=== PATIENT | male | born 1950 | race Caucasian/White ===

== ENCOUNTER 2018-11-30 15:00 | Outpatient (RCR) ==
--- NOTE | 2018-11-17 15:52 | RS.OPPTEV2 ---
Date of Note: 11/17/18 Visit #: 1 Number of visits approved by Insurance: pending approval Date of Evaluation: 11/17/18 Payer Source: Insurance Surgery Performed?: No Treatment Diagnosis: low back pain with radicular symptoms in RLE History of Condition/Mechanism of Injury:: Pain began approx 1 month ago after pt was pruning hedges, when pt stood up had a sharp, "burning" pain in the small of his back. pt received pain meds, steroids, and muscle relaxers and had some relief then raked the yard and had worsening of symptoms radiating into RLE. Prior Level of Function.....Patient was independent with: ADL's, Self Care, Ambulation/Mobility, Community Integration/Access Functional Limitations: Sleep, Pulling, Lifting, Standing, Squatting, Ambulation Current Subjective/complaints:: pt reports pain is worse when standing for any period of time. Reports pain radiates from low back to buttocks, post knee with n/t in dorsum of R foot. pt reports he has an MRI scheduled for 11/25/[address] [facility] [place] [facility]. pt states he wants to try traction. Treatment Side (optional): Right *Precautions: Prostate Cancer Medical History Medical History: Hypertension, Diabetes, Cancer (prostate cancer) Medical History Comments:: Afib Surgical History: Cholecystectomy Surgical History Comments:: sinus sx, appey Smoking Status: Former smoker Diagnostic Testing/Imaging:: had an xray at [facility] [place] [facility], have called and requested a copy of the results. Hx Home Medications: pain pills, muscle relaxers, aspirin Patient's Goals: decrease low back pain Pain Assessment - Pain Description Pain Location: R lumbar radiating into buttock, post knee Pain Description: Burning Current Pain Intensity: 3-4/10 at rest, increased to 6/10 during eval Functional Outcome Measure Oswestry LBP: 29 - G Codes & Severity Modifier G Codes & Modifier: n/a Source of G Code score: n/a Observation - Observation Inspection: pt presents with hamstring tightness BLE with R worse than L. B piriformis tightness L worse than RLE. pt also with RLE longer than LLE. Posture: Forward Head, Rounded Shoulders, Increased Thoracic Kyphosis Handedness: Right Gait - Gait Pattern Gait Comments: pt amb with guarded posture using cane for support General Range of Motion: BUE WFL's. BLE WFL's Muscle Strength: BUE 5/5. RLE 4+/5 hip, 5/5 knee and ankle. LLE 5/5 - ROM Lumbar Flexion: Hand reach to Mid-Shins Sidebending to Left: Reach to Lateral Joint Line Sidebending to Right: Reach to Lateral Joint Line Lumbar Spine ROM Limitations: Soft Tissue Tightness, Muscle Weakness, Pain Comments: pt with increased pain with ext as well as left side bending - Strength Trunk Extension: 3+ Fair+ Trunk Flexion: 4- Good- Trunk Lateral Flexion: 4- Good- - Special Tests STEFF Test: Negative Left, Negative Right SLR Test: Positive Right Seated Dural Stretch Test: Positive Right SI Joint Compression: Positive Palpation Palpation Findings: Tenderness, Trigger Point, Muscle Guarding Comments:: tenderness noted in R lumbar/sacral area with muscle guarding as well as trigger point noted in R lower lumbar area. Palpation of R border of sacrum appears rotated post. Sensation - Sensation Right Upper Extremity: Intact/Normal Left Upper Extremity: Intact/Normal Right Lower Extremity: Impaired (pt with occasional numbness and tingling in dorsum of R foot.) Left Lower Extremity: Intact/Normal Balance - Sitting Balance Static Sitting Balance: Normal Dynamic Sitting Balance: Normal - Standing Balance Static Standing Balance: Good Dynamic Standing Balance: Good - Treatment Modality: Electrical Stim Unattended Parameters/Method Applied: IFC x 20 mins at 10ma Treatment Area: R lumbar/sacral area Patient Position: Left Sidelying - Heat/Cryotherapy Treatment: Cryotherapy Comments:: R lumbar/sacral area while getting estim Interventions - Exercise/Activities/Manual Therapy Exercises/Activities: pt received gentle hamstring stretching BLE, piriformis stretch, pt also received muscle energy technique with RLE into ext and LLE into flex Manual Therapy: n/a HOME EXERCISE PROGRAM: pt given written HEP including: piriformis stretch, hamstring stretch, pelvic tilt, muscle energy. - Charges Timed Code Treatment Minutes: 48 Total Treatment Time: 65 Procedures billed for this date of service:: eval med, estim, cold pack EVALUATION COMPLEXITY LEVEL EVALUATION COMPLEXITY LEVEL: HISTORY: Medium (LBP, prostate CA, HTN, DM, ), EXAM OF BODY SYSTEMS: Medium (strength, posture, muslcle tightness ), CLINICAL PRESENTATION: Medium, CLINICAL DECISION MAKING: Medium Assessment Assessment: pt presents with low back pain with radiculopathy in the path of sciatic nerve. pt presents with hamstring and piriformis tightness as well as slight leg length discrepancy. Feel pt would benefit from skilled PT for therex for stretching, strengthening (focus on core), as well as modalities to decrease pain and inflammation and possible trial of lumbar traction. Patient Education: Education of diagnosis, Education of Plan of Care Rehab Potential: Good Short Term Goals Goal #1: pt independent with HEP Goal to be met by: 12/04/18 Goal #2: pt hamstring and piriformis flexibility WFL's Goal to be met by: 12/04/18 Goal #3: pt leg length equal BLE Goal to be met by: 12/04/18 Goal #4: pt rate pain <4/10 with activity Goal to be met by: 12/04/18 Retirement Goals Goal #1: pt report decreased pain with normal household activities. Goal to be met by: 12/25/18 Goal #2: Decreased muscle guarding and no trigger points noted Goal to be met by: 12/25/18 Goal #3: pt with no reports of radicular pain into RLE Goal to be met by: 12/25/18 Goal #4: Lumbar ROM WFL's Goal to be met by: 12/25/18 Plan - Treatment to be Provided Procedures: Therapeutic Exercises, Therapeutic Activity, Neuromuscular Rehab, Manual Therapy, Massage Modalities: Electrical Stimulation, Cryotherapy, Hot Packs, Mechanical Traction - Treatment Plan Frequency: 2-3x a week Duration: 6 weeks Dates of Retirement Goals: 12/25/18 Expiration date of current Insurance Approval:: pending - Treatment Code (1) Lumbar back pain with radiculopathy affecting right lower extremity Code(s): M54.17 - RADICULOPATHY, LUMBOSACRAL REGION (2) Muscle tightness Code(s): M62.89 - OTHER SPECIFIED DISORDERS OF MUSCLE (3) Joint stiffness Code(s): M25.60 - STIFFNESS OF UNSPECIFIED JOINT, NOT ELSEWHERE CLASSIFIED
--- NOTE | 2018-11-24 11:25 | RS.OPPTDN ---
Subjective Date of Note: 11/24/18 Visit #: 2 Number of visits approved by Insurance: [id number] Date of Evaluation: 11/17/18 Payer Source: Insurance Treatment Diagnosis: low back pain with radicular symptoms in RLE Current Subjective/complaints:: Patient says he felt better after the treatment at his eval. He reports pain is constant 5/10 and at the R low back, R hamstring, and posterior knee currently. States it is intermittently to the dorsum of the foot. *Precautions: Prostate Cancer - Treatment Modality: Electrical Stim Unattended Parameters/Method Applied: IFC @ 9 ma x 20 mins to the lumbar paraspinals and superior gluts Patient Position: Left Sidelying - Heat/Cryotherapy Treatment: Hot Pack (20 mins with estim) Interventions - Exercise/Activities/Manual Therapy Exercises/Activities: Patient received passive stretching bilaterally, but with emphasis on R side: SKTC, HS, Piriformis, Figure 4, and lower trunk rotation x 4. Began patient education on diagnosis, avoiding twisting and bending at the spine and using proper body mechanics, HEP, and reviewed mechanical traction. Total minutes of Exercise: 16 Manual Therapy: n/a HOME EXERCISE PROGRAM: pt given written HEP including: piriformis stretch, hamstring stretch, pelvic tilt, muscle energy. - Charges Timed Code Treatment Minutes: 16 Total Treatment Time: 36 Procedures billed for this date of service:: hp, estim (un), ex Assessment: Patient appears to be responding to treatment as he admit reduction of back pain and pain mostly staying at the R LB, buttock, and hamstring with less tendency to radiate to the lower leg and foot. He is optimistic about trying traction as he has had it in the past and had success @ about 100# pull. Will begin at 25% of total weight and progress as marcella at next session. Patient Education: Education of diagnosis, Body/Joint mechanics, Home Exercise Program, Education of Plan of Care Short Term Goals Goal #1: pt independent with HEP Goal to be met by: 12/04/18 Progress towards Goal:: Progressing Goal #2: pt hamstring and piriformis flexibility WFL's Goal to be met by: 12/04/18 Goal #3: pt leg length equal BLE Goal to be met by: 12/04/18 Goal #4: pt rate pain <4/10 with activity Goal to be met by: 12/04/18 Halfway Goals Goal #1: pt report decreased pain with normal household activities. Goal to be met by: 12/25/18 Goal #2: Decreased muscle guarding and no trigger points noted Goal to be met by: 12/25/18 Goal #3: pt with no reports of radicular pain into RLE Goal to be met by: 12/25/18 Goal #4: Lumbar ROM WFL's Goal to be met by: 12/25/18 Plan Dates of Chief Chemist Goals: 12/25/18 Expiration date of current Insurance Approval:: 12/25/18 PLAN: Patient to continue modalities and begin mechanical lumbar traction next session to relieve R LE symptoms and localize pain.
--- NOTE | 2018-11-27 16:46 | RS.OPPTDN ---
Subjective Date of Note: 11/27/18 Visit #: 3 Number of visits approved by Insurance: 18 Date of Evaluation: 11/17/18 Payer Source: Insurance Treatment Diagnosis: low back pain with radicular symptoms in RLE Current Subjective/complaints:: Patient says he is surprised by how much the estim was helping. He says pain is mostly at the R low back and R buttock. This pain is constant, but less intense. States he would like to have traction today. *Precautions: Prostate Cancer - Treatment Modality: Electrical Stim Unattended Parameters/Method Applied: hivolt 4 large pads @ 75-95 pk volts vertically along the lumbar paraspinals and superior gluts x 20 mins. Patient Position: Left Sidelying - Heat/Cryotherapy Treatment: Hot Pack - Traction Treatment Method: Mechanical, Intermittent, Lumbar Patient Position: Supine Amount of Force Applied: 55-60# Hold Time: 25 Rest Time: 5 Duration of treatment: 12 mins Traction Treatment Comment: 2 steps up, 1 down. Increased poundage care home through treatment Interventions - Exercise/Activities/Manual Therapy Exercises/Activities: Reviewed HEP and educated on mechanical traction. Manual Therapy: n/a HOME EXERCISE PROGRAM: pt given written HEP including: piriformis stretch, hamstring stretch, pelvic tilt, muscle energy. - Charges Timed Code Treatment Minutes: 6 Total Treatment Time: 38 Procedures billed for this date of service:: hp, estim (un), mechanical traction Assessment: Patient appears to be having less intense pain and localizing to the R LB and buttock. He marcella mechanical traction well and admits he did not feel ~25% weight of pull, but also explained we want to progress the weight and not have him hurt tonight because of increased poundage. He has had traction many years ago and had relief therefore, he will probably benefit from further increase of pull in subsequent treatments. Patient Education: Education of diagnosis, Home Exercise Program, Education of Plan of Care Short Term Goals Goal #1: pt independent with HEP Goal to be met by: 12/04/18 Progress towards Goal:: Progressing Goal #2: pt hamstring and piriformis flexibility WFL's Goal to be met by: 12/04/18 Progress towards Goal:: Progressing Goal #3: pt leg length equal BLE Goal to be met by: 12/04/18 Goal #4: pt rate pain <4/10 with activity Goal to be met by: 12/04/18 [facility] Goals Goal #1: pt report decreased pain with normal household activities. Goal to be met by: 12/25/18 Goal #2: Decreased muscle guarding and no trigger points noted Goal to be met by: 12/25/18 Goal #3: pt with no reports of radicular pain into RLE Goal to be met by: 12/25/18 Goal #4: Lumbar ROM WFL's Goal to be met by: 12/25/18 Plan Dates of Nuclear Physics Professor Goals: 12/25/18 Expiration date of current Insurance Approval:: 12/25/18 PLAN: Patient to continue with progression of therex and mechanical traction to ease radicular symptoms.
--- NOTE | 2018-11-30 16:26 | RS.OPPTDN ---
Subjective Date of Note: 11/30/18 Visit #: 4 Number of visits approved by Insurance: Reassess at 10th Date of Evaluation: 11/17/18 Payer Source: Insurance Treatment Diagnosis: low back pain with radicular symptoms in RLE Current Subjective/complaints:: Patient said he felt great for 1 day after his last session beginning traction, but then he was sore for about 12 hours to the R low back and buttock running down to the posterior thigh, but then completely went away. He is anxious to progress traction so that he can have further pain reduction. *Precautions: Prostate Cancer - Treatment Modality: Electrical Stim Unattended Parameters/Method Applied: hivolt 4 large pads 2 for the R lower lumbar paraspinals and R SIjoint, 2 large at the L lumbar paraspinals @ 125 pk volts Patient Position: Left Sidelying - Heat/Cryotherapy Treatment: Hot Pack - Traction Treatment Method: Mechanical, Intermittent, Lumbar Patient Position: Supine Amount of Force Applied: 62-66 Hold Time: 30 Rest Time: 5 Duration of treatment: 15 Interventions - Exercise/Activities/Manual Therapy Exercises/Activities: Reviewed HEP and educated on mechanical traction. Manual Therapy: n/a HOME EXERCISE PROGRAM: pt given written HEP including: piriformis stretch, hamstring stretch, pelvic tilt, muscle energy. - Charges Timed Code Treatment Minutes: 5 Total Treatment Time: 41 Procedures billed for this date of service:: hp, estim (un), mechanical traction Assessment: Patient seems to be responding to treatment as he had significantly less pain to the R low back and buttock showing less radiating pain as well for 1 day post treatment. He had increased pain later on, but did go away. Nain felt a pop to his low back during traction in which it resulted in improved pain. Patient anticipating further progression of traction. He is also anticipating his MD visit Friday, 12/02 to receive MRI results. Patient Education: Education of diagnosis, Home Exercise Program, Education of Plan of Care Patient demonstrates compliance with HEP?: Yes Short Term Goals Goal #1: pt independent with HEP Goal to be met by: 12/04/18 Progress towards Goal:: Progressing Goal #2: pt hamstring and piriformis flexibility WFL's Goal to be met by: 12/04/18 Progress towards Goal:: Progressing Goal #3: pt leg length equal BLE Goal to be met by: 12/04/18 Goal #4: pt rate pain <4/10 with activity Goal to be met by: 12/04/18 Progress towards Goal:: Progressing [facility] Goals Goal #1: pt report decreased pain with normal household activities. Goal to be met by: 12/25/18 Goal #2: Decreased muscle guarding and no trigger points noted Goal to be met by: 12/25/18 Goal #3: pt with no reports of radicular pain into RLE Goal to be met by: 12/25/18 Goal #4: Lumbar ROM WFL's Goal to be met by: 12/25/18 Plan Dates of [facility] Goals: 12/25/18 Expiration date of current Insurance Approval:: 12/25/18 PLAN: Progress traction and stability exercises. Attend MD follow up Friday.
== END 2018-12-08 23:59 ==
PROVIDERS: ATTEND Orthopaedic Surgery Orthopaedic Surgery of the Spine
DX: M54.5 Low back pain (principal); M54.16 Radiculopathy, lumbar region

== ENCOUNTER 2018-12-23 11:00 | Outpatient (RCR) ==
--- NOTE | 2018-12-14 12:38 | RS.OPPTDN ---
Subjective Date of Note: 12/14/18 Visit #: 5 Number of visits approved by Insurance: 18 Date of Evaluation: 11/17/18 Payer Source: Insurance Treatment Diagnosis: low back pain with radicular symptoms in RLE Current Subjective/complaints:: Patient asks about his bill and says he has not attended therapy since 11/30/18 due to needing to get his insurance straightened out. Reports that he does not wish to continue with services that are not covered such as estim. U/s is a precaution due to his history of prostate cancer. He does understand and wishes to continue with traction. He informed me of his MRI report which reveals L4/L5 bulging disc (per patient). He states pain is at the R low back, R buttock and then begins again at the R calf. *Precautions: Prostate Cancer - Heat/Cryotherapy Treatment: Hot Pack (15 mins (not charged) to the low back and R hip in L sidelying prior to traction) - Traction Treatment Method: Mechanical, Intermittent, Lumbar Patient Position: Supine Amount of Force Applied: 70, progressed retirement through to 80 Hold Time: 35 Rest Time: 5 Duration of treatment: 20 Traction Treatment Comment: 3 steps Interventions - Exercise/Activities/Manual Therapy Exercises/Activities: Reviewed HEP and educated on mechanical traction. Discussed patient's bill and items that were applied at previous treatments based on c/o's, eval, and avoided u/s due to precaution. Also, discussed general questions about body mechanics, yard work, and [place] this year. Total minutes of Exercise: 17 Manual Therapy: n/a HOME EXERCISE PROGRAM: pt given written HEP including: piriformis stretch, hamstring stretch, pelvic tilt, muscle energy. - Charges Timed Code Treatment Minutes: 17 Total Treatment Time: 52 Procedures billed for this date of service:: mechanical traction Assessment: Patient presents with pain at the R LB, buttock, and R calf. He admits MRI report of bulged disc to the L4L5. He has intermittent nerve pain with posture and positioning himself in his vehicle. He is concerned he may have return of this pain at some point and agrees he will take breaks with weedeating this week. He has resumed ride mowing, although it took him 2 days, but performed without difficulty. Patient Education: Education of diagnosis, Body/Joint mechanics, Home Exercise Program, Home Safety, Education of Plan of Care Patient demonstrates compliance with HEP?: Yes Short Term Goals Goal #1: pt independent with HEP Goal to be met by: 12/04/18 Progress towards Goal:: Progressing Goal #2: pt hamstring and piriformis flexibility WFL's Goal to be met by: 12/04/18 Progress towards Goal:: Progressing Goal #3: pt leg length equal BLE Goal to be met by: 12/04/18 Progress towards Goal:: Progressing Goal #4: pt rate pain <4/10 with activity Goal to be met by: 12/04/18 Progress towards Goal:: Progressing Assisted Goals Goal #1: pt report decreased pain with normal household activities. Goal to be met by: 12/25/18 Goal #2: Decreased muscle guarding and no trigger points noted Goal to be met by: 12/25/18 Goal #3: pt with no reports of radicular pain into RLE Goal to be met by: 12/25/18 Goal #4: Lumbar ROM WFL's Goal to be met by: 12/25/18 Plan Dates of Decorator Mannequin Goals: 12/25/18 Expiration date of current Insurance Approval:: 12/25/18 PLAN: Patient to continue with progression of traction and therex
--- NOTE | 2018-12-18 14:27 | RS.OPPTDN ---
Subjective Date of Note: 12/18/18 Visit #: 6 Number of visits approved by Insurance: 18 Date of Evaluation: 11/17/18 Payer Source: Insurance Treatment Diagnosis: low back pain with radicular symptoms in RLE Current Subjective/complaints:: Patient says that he did not have increased symptoms since his last session with increasing traction, but does admit he had pain to the R LB and buttock after planting blueberry bushes. Says it is difficult for him to bend over without having pain. *Precautions: Prostate Cancer - Heat/Cryotherapy Treatment: Hot Pack (mid to low back in supine during therex) - Traction Treatment Method: Mechanical, Intermittent, Lumbar Patient Position: Supine Amount of Force Applied: 80-88 Hold Time: 40 Rest Time: 5 Duration of treatment: 20 Traction Treatment Comment: 3 steps up Interventions - Exercise/Activities/Manual Therapy Exercises/Activities: Patient receives passive stretching while on heat. SKTC, HS, Piriformis, Lower trunk rotation glides, figure 4 bilaterally x 4 reps. Reviewed proper body mechanics and HEP. Total minutes of Exercise: 15 Manual Therapy: n/a HOME EXERCISE PROGRAM: pt given written HEP including: piriformis stretch, hamstring stretch, pelvic tilt, muscle energy. - Charges Timed Code Treatment Minutes: 15 Total Treatment Time: 35 Procedures billed for this date of service:: EX, mechanical traction Assessment: Patient marcella progressive traction poundage and often requests to increase. He has had less intense back pain and it remains to be at the R lumbar and buttock especially when bending over and planting bushes since his last session. Patient Education: Body/Joint mechanics, Home Exercise Program, Home Safety Patient demonstrates compliance with HEP?: Yes Short Term Goals Goal #1: pt independent with HEP Goal to be met by: 12/04/18 Progress towards Goal:: Progressing Goal #2: pt hamstring and piriformis flexibility WFL's Goal to be met by: 12/04/18 Progress towards Goal:: Progressing Goal #3: pt leg length equal BLE Goal to be met by: 12/04/18 Progress towards Goal:: Progressing Goal #4: pt rate pain <4/10 with activity Goal to be met by: 12/04/18 Progress towards Goal:: Progressing Director Of Trauma Goals Goal #1: pt report decreased pain with normal household activities. Goal to be met by: 12/25/18 Goal #2: Decreased muscle guarding and no trigger points noted Goal to be met by: 12/25/18 Goal #3: pt with no reports of radicular pain into RLE Goal to be met by: 12/25/18 Goal #4: Lumbar ROM WFL's Goal to be met by: 12/25/18 Plan Dates of Director Of Trauma Goals: 12/25/18 Expiration date of current Insurance Approval:: 12/25/18 PLAN: Patient to continue with progression of traction next week and then reassess.
--- NOTE | 2018-12-21 15:24 | RS.OPPTDN ---
Subjective Date of Note: 12/21/18 Visit #: 7 Number of visits approved by Insurance: Reassess at 10th Date of Evaluation: 11/17/18 Payer Source: Insurance Treatment Diagnosis: low back pain with radicular symptoms in RLE Current Subjective/complaints:: Patient says he felt like he had a "bounce in his step" when leaving his previous session. He says as he was driving down the road however, he got a very temporary sharp pain to the R side of his back. He says from then on he has had no back or SI joint pain. He expresses satisfaction with treatment so far and pleased that his back is feeling so much better. *Precautions: Prostate Cancer - Heat/Cryotherapy Treatment: Hot Pack (mid to low back in supine during stretches/therex) - Traction Treatment Method: Mechanical, Intermittent, Lumbar Patient Position: Supine Amount of Force Applied: 92 Hold Time: 40 Rest Time: 5 Duration of treatment: 20 Traction Treatment Comment: 3 steps Interventions - Exercise/Activities/Manual Therapy Exercises/Activities: Patient receives passive stretching while on heat. SKTC, HS, Piriformis, Lower trunk rotation glides, figure 4 bilaterally x 4 reps. Patient begins trunk strengthening including: Hooklying bridging, isometric hip add using ball squeezes, hip abd using blue tband. Given tband for HEP hip abd. All above therex performed x 12 reps. Reviewed proper body mechanics and HEP. Total minutes of Exercise: 18 Manual Therapy: n/a HOME EXERCISE PROGRAM: pt given written HEP including: piriformis stretch, hamstring stretch, pelvic tilt, muscle energy. - Charges Timed Code Treatment Minutes: 18 Total Treatment Time: 38 Procedures billed for this date of service:: mechanical traction, ex Assessment: Patient experiencing less intense pain admitting none today. He demo improved flexibility to the lumbar spine and progressing with trunk strengthening as well. Increased poundage on traction today and marcella without difficulty. Patient Education: Home Exercise Program, Education of Plan of Care Patient demonstrates compliance with HEP?: Yes Short Term Goals Goal #1: pt independent with HEP Goal to be met by: 12/04/18 Progress towards Goal:: Progressing Goal #2: pt hamstring and piriformis flexibility WFL's Goal to be met by: 12/04/18 Progress towards Goal:: Progressing Goal #3: pt leg length equal BLE Goal to be met by: 12/04/18 Progress towards Goal:: Progressing Goal #4: pt rate pain <4/10 with activity Goal to be met by: 12/04/18 Progress towards Goal:: Progressing Senior Care Goals Goal #1: pt report decreased pain with normal household activities. Goal to be met by: 12/25/18 Goal #2: Decreased muscle guarding and no trigger points noted Goal to be met by: 12/25/18 Goal #3: pt with no reports of radicular pain into RLE Goal to be met by: 12/25/18 Goal #4: Lumbar ROM WFL's Goal to be met by: 12/25/18 Plan Dates of Coke Inspector Goals: 12/25/18 Expiration date of current Insurance Approval:: 12/25/18 PLAN: Continue BIW for traction and strengthening core to further maintain reduction of radiculopathy.
--- NOTE | 2018-12-23 15:16 | RS.OPPTDN ---
Subjective Date of Note: 12/23/18 Visit #: 9 Number of visits approved by Insurance: REassess at 10 Date of Evaluation: 11/17/18 Payer Source: Insurance Treatment Diagnosis: low back pain with radicular symptoms in RLE Current Subjective/complaints:: Patient reports progressing exercises at previous visit caused him soreness across the waistline. States today it is only at the R side of the low back and into the hip. He also adds latter portion of the treatment that due to his progress, he wishes to make today his final session. *Precautions: Prostate Cancer - Heat/Cryotherapy Treatment: Hot Pack (during therex supine to mid to low back) - Traction Treatment Method: Mechanical, Intermittent, Lumbar Patient Position: Supine Amount of Force Applied: 95 Hold Time: 45 Rest Time: 5 Duration of treatment: 20 Traction Treatment Comment: 3 steps Interventions - Exercise/Activities/Manual Therapy Exercises/Activities: Patient receives passive stretching while on heat. SKTC, HS, Piriformis, Lower trunk rotation glides, figure 4 bilaterally x 4 reps. Patient continues with trunk strengthening including: avoided bridging, isometric hip add using ball squeezes, hip abd isometrics, and isometric hip flexion. Reviewed HEP, postural and body mechanics. All above therex performed x 12 reps. Discussed possiblity of home traction device if MD approves and patient will contact his insurance about approval as well. Total minutes of Exercise: 19 Manual Therapy: n/a HOME EXERCISE PROGRAM: pt given written HEP including: piriformis stretch, hamstring stretch, pelvic tilt, muscle energy. - Charges Timed Code Treatment Minutes: 19 Total Treatment Time: 39 Procedures billed for this date of service:: ex, mechanical traction Assessment: Patient has marcella and progressed well with mechanical traction. He has had pain mostly localized to the R LB and R hip (which R hip pain is very seldom at this point). He has had 1-2 days painfree. He is aware of HEP and is performing them as well as being mindful of proper body mechanics when it comes to yardwork and house chores. Lumbar flexibility is still somewhat limited based on HS extensibility, but all other (rotation and SKTC) has improved. He expresses satisfaction with his progress so far and wishes to discontinue at this point. Patient Education: Education of diagnosis, Body/Joint mechanics, Home Exercise Program, Education of Plan of Care Patient demonstrates compliance with HEP?: Yes Short Term Goals Goal #1: pt independent with HEP Goal to be met by: 12/04/18 Progress towards Goal:: Met Goal #2: pt hamstring and piriformis flexibility WFL's Goal to be met by: 12/04/18 Progress towards Goal:: Partially Met Comments:: piriformis met, hamstring L is minimally limited. Goal #3: pt leg length equal BLE Goal to be met by: 12/04/18 Progress towards Goal:: Partially Met (inconsistently meeting) Goal #4: pt rate pain <4/10 with activity Goal to be met by: 12/04/18 Progress towards Goal:: Met Detention Goals Goal #1: pt report decreased pain with normal household activities. Goal to be met by: 12/25/18 Progress towards goal: Met Comments: admits this has eased greatly allowing increased activities Goal #2: Decreased muscle guarding and no trigger points noted Goal to be met by: 12/25/18 Progress towards goal: Progressing Goal #3: pt with no reports of radicular pain into RLE Goal to be met by: 12/25/18 Progress towards goal: Partially Met Comments: intermittently to the R hip only Goal #4: Lumbar ROM WFL's Goal to be met by: 12/25/18 Progress towards goal: Progressing Plan Dates of Negative Cleaner Goals: 12/25/18 Expiration date of current Insurance Approval:: 12/25/18 PLAN: Patient to discontinue per his request. He was encouraged to continue HEP.
== END 2019-01-08 23:59 ==
PROVIDERS: ATTEND Orthopaedic Surgery Orthopaedic Surgery of the Spine
DX: M54.5 Low back pain (principal); M54.16 Radiculopathy, lumbar region